=== PATIENT | male | born 1955 | race Asian ===

== ENCOUNTER → 2016-04-14 | Outpatient (CLI) | payer OTHER ==
--- NOTE | 2016-04-14 08:55 | US ---
Bilateral Duplex Carotid Sonography Clinical Indications: 61-year-old male with left-sided pulsatile tinnitus. Evaluate for hemodynamical ly significant stenosis. ICD 10 Diagnostic Code: H93.12. Technique: The cervical portions of the carotid and vertebral arteries were imaged and interrogated by color and pulsed Doppler. Color and spectral Doppler analysis was performed. Cine clips are stored on PACS. Comparison Study: None. Findings: Right Carotid Artery: The common carotid artery, bulb, and internal and external carotid arteries are well-imaged. The peak systolic velocity in the internal carotid artery is 62 cm/s, and the internal carotid artery peak diastolic velocity is 22 cm/s. The ICA to CCA systolic and diastolic ratios are n ormal. The right to left ICA systolic ratio is normal. The external carotid artery is patent. Left Carotid Artery: The common carotid artery, bulb, and the internal and external carotid arteries are well-imaged. The peak systolic velocity in the internal carotid artery is 54 cm/s, with a peak di astolic velocity 20 cm/s. The ICA to CCA systolic and diastolic ratios are normal. The external carot id artery is patent. Vertebral Arteries: Antegrade flow is shown by pulsed Doppler of each vertebral artery. The peak sys tolic velocity in the right vertebral artery is 47 cm/s, and in the left vertebral artery is 49 cm/s. Impression: 1. There is no sonographic evidence of a hemodynamically significant ICA stenosis. 2. Patent, antegrade vertebral arteries. If there is further clinical concern regarding the patient's left-sided pulsatile tinnitus, perhaps M R imaging could be considered. Measurement of carotid stenosis is based on velocity parameters that correlate the residual internal carotid diameter with [place] Symptomatic Carotid Endarterectomy Trial (NASCET) based stenosis levels.
== END ==
LOC: BMCIMAGING 08:13
PROVIDERS: ATTEND Internal Medicine
DX: H93.12 Tinnitus, left ear (principal)